=== PATIENT | female | born 1945 | race Caucasian/White ===

== ENCOUNTER → 2019-10-19 13:29 | Outpatient (CLI) | payer MEDICARE, SELFPAY ==
[2019-10-20 14:05] LABS: COVID19 Sendout Not Detected (Not Detect)
== END ==
PROVIDERS: PCP Family Medicine; Visit Provider Physician Assistant
DX: Z01.812 Encounter for preprocedural laboratory examination (principal)
CPT/HCPCS: 87635

== ENCOUNTER 2019-10-22 06:04 | Inpatient (IN) | payer MEDICARE, SELFPAY ==
[2019-10-16 09:58] VITALS: BMI 46.0
[2019-10-22] VITALS (17 sets, daily range): BP systolic 105–148; BP diastolic 50–82; PULSE 70–90; RESP 11–18; TEMP 35.9–36.8; O2SAT 87–97; BMI 46.0
--- NOTE | 2019-10-22 | DI.RAD.S_ITS ---
PROCEDURE: XR KNEE LT 1TO2V INDICATIONS: LEFT TOTAL KNEE TECHNIQUE: 2 view(s) of the knee acquired. COMPARISON: None. FINDINGS: Bones: Patient is status post knee joint arthroplasty. Hardware components are in expected positions. Visualized bony structures are intact. Soft tissues: Overlying postoperative changes are noted. IMPRESSION: Total knee arthroplasty with prosthesis in anatomic alignment. Dictated by: Elly Santos M.D. on 10/22/2019 at 10:50 Approved by: Elly Santos M.D. on 10/22/2019 at 10:51
[2019-10-22] MEDS: LACTATED RINGERS 1,000 ML 42 ML IV ×2 (07:12→09:31)
[2019-10-22] MEDS: ACETAMINOPHEN 325 MG TABLET 975 MG PO (07:14)
--- NOTE | 2019-10-22 07:34 | PM.PREOP ---
Pre-operative Note COVID-19 COVID-19 status: Negative Result date/Date tested (Pos, Neg/Pending): 10/20/19 Interval Note History & Physical reviewed/Exam performed by Physician: Yes Changes to H&P: No
--- NOTE | 2019-10-22 07:35 | P.OP_ITS ---
Operative Date/Time/Diagnoses Date of procedure: 10/22/19 Time of procedure: 09:34 Pre-op diagnosis: Left knee osteoarthritis with valgus alignment Post-op diagnosis: same Procedure & Clinicians Procedure: Left total knee arthroplasty Same procedure as scheduled: Yes Indications: The patient presents today for total knee arthroplasty after f ailure of conservative treatment. The nature of the procedure including the risks and benefits, alternatives, postoperative course and expected outcome were discussed and all questions answered. Consent was obtained. Operative site confirmed and marked. Surgeon: Sam Baum Oil Refinery Operator: Moises Chung Anesthesia Type: General and Local Operative Notes Findings: The cases made difficult by the size of the patient's leg and posterior soft tissues. The knee was tight laterally as expected from her preoperative deformity. A lateral capsular release was performed using a 15 blade for the pie crust technique. This nicely balance the knee in flexion and extension. A +1 femoral cut was made as there was a slight flexion contracture. The tibial cut was made at 9 mm from the less affected medial side. The knee easily went into full extension and flexed up to at least 120? intraoperatively. Flexion was limited by soft tissue impingement. Closure Type: primary Specimen(s): none sent Prosthetic devices, grafts, tissues, transplants, or devices: [employer] BCS: 5 femoral component, 4 tibial component, 9 mm BCS polyethylene tray and 32 x 9 mm round patella Applied: implant(s) Estimated Blood Loss (mL): 5 Blood products transfused: none Tourniquet time (min): 60 Procedure in detail: The patient was taken to the operative suite and placed under anesthesia. The patient was given prophylactic antibiotics prior to surgery. The lateral knee was prepped and the joint injected with 20 mL of 1% Lidocaine with epinephrine. The knee was then prepped and draped in usual sterile fashion. The leg was exsanguinated with an Esmarch dressing and the tourniquet raised to 300 torr. A 15 cm anterior incision was made. Next a medial trivector arthrotomy was made. The extensor mechanism was marked to ensure accurate repair. Initial exposing dissection was carried out medially and laterally. The knee was then flexed and the intramedullary femoral guide evie placed. The distal femoral cut was made in [6]? of valgus at the +1 position. The femoral size was measured and the appropriate cutting block was then placed and the anterior, posterior and chamfer cuts made. The intramedullary tibial alignment evie was then placed. The guide was set to remove approximately 9 mm from the less affected medial side. The proximal tibial cut was then made with an oscillating saw. All meniscus and bony debris was then removed. Posterior femoral osteophytes removed with a curved osteotome. Flexion extension gaps were checked. The knee was tight laterally as expected. The lateral capsule was released until the knee was balanced using a pie crust technique with a 15 blade. The soft tissues were then injected with a combination of 20 mL of half percent Marcaine with epinephrine and 20 mL of Exparel. The trial components were then placed. The knee was then extended and the patellar thickness was measured and a cut made removing approximately [9] mm of bone. The patella was then sized and drilled. Some excess lateral bone was excised and the patellofemoral ligament released. The knee easily went into full extension. It bent to at least 120?. The band was limited by soft tissue impingement posteriorly. There was [excellent] medial-lateral balance throughout motion. Patellar tracking was [excellent]. The trial components were removed and the knee was cleansed with Pulsavac irrigation and dried. The final components were cemented with high viscosity vacuum mixed bone cement with antibiotics. The joint was filled with a dilute Betadine solution. The knee was held in extension and the patellar clamped until the cement was adequately cured. The knee was then irrigated. The extensor mechanism was closed with 5 interrupted #1 Vicryl sutures and a running Quill suture at approximately 90 degrees of flexion. The joint was then injected with a combination of 1 g of tranexamic acid and 20 mL of quarter percent Marcaine with epinephrine. The subcutaneous tissue was closed with 2 0 Vicryl. The skin was closed with a Zip-Close device. An calderon dressing and Ricardo wrap were then applied. The patient tolerated the procedure well and was returned to recovery room in good condition. Complications: none Post-operative Condition: stable Disposition: PACU Plan for aftercare: [facility] Protocol. Due to her history of previous DVT she will neutrally be on Lovenox and then transition back to her normal Coumadin for prophylaxis.
--- NOTE | 2019-10-22 07:35 | SUR.PREOP ---
Patient noted to have amoxicillin allergy listed. According to patient, she had hives from amoxicillin about two years ago but went to an compliance engineer who tested her extensively for the amoxicillin allergy and found her to not be allergic. Notified pharmacy.
[2019-10-22] MEDS: CEFAZOLIN 2 GM/100 ML FROZ.PIGGY IV (08:15)
[2019-10-22] MEDS: TRANEXAMIC ACID 1,000 MG VIAL 1000 MG IV (08:25)
--- NOTE | 2019-10-22 08:35 | SUR.OPER ---
Supine on padded OR bed. Pillow under head, arms secured on padded armboards <90 degree abduction. Safety belt across torso. Non-operative leg secured with tape over blanket over lower leg. Operative leg secured in DeMayo/Alejandro positioner. Foam padded brace at thigh of operative leg.
[2019-10-22] MEDS: BUPIVACAINE 0.25% W/ EPI (PF) 40 ML, BUPIVACAINE LIPOSOME 266 MG, SODIUM CHLORIDE 0.9% ... INJ (08:45)
[2019-10-22] MEDS: BUPIVACAINE 0.25% W/ EPI (PF) 20 ML, TRANEXAMIC ACID 1,000 MG, SODIUM CHLORIDE 0.9% 10 ML INJ (08:47)
[2019-10-22] MEDS: LIDOCAINE 1% W/EPI 20 ML INJ (08:48)
--- NOTE | 2019-10-22 10:20 | SUR.PHASEI ---
10:20 called to give report to inpatient nurse; nurse unavailable.
--- NOTE | 2019-10-22 10:34 | SUR.PHASEI ---
Attempted to give report again to receiving nurse and nurse unavailable. Offered to give bedside report and nurse refused, saying that she would have to take report over the phone.
[2019-10-22] MEDS: OXYCODONE IR 10 MG TABLET PO ×2 (12:13→16:49)
[2019-10-22] MEDS: LACTATED RINGERS 1,000 ML 100 ML IV (12:16)
[2019-10-22] MEDS: HYDROMORPHONE 0.5 MG INJ 0.2 MG IV (13:10)
[2019-10-22] MEDS: IBUPROFEN 400 MG TABLET PO ×3 (13:54→20:58)
[2019-10-22] MEDS: ACETAMINOPHEN 325 MG TABLET 650 MG PO ×2 (13:54→20:57)
--- NOTE | 2019-10-22 16:47 | PT.IIE ---
Current Diagnoses Unilateral primary osteoarthritis, left knee (10/22/19) Surgery Performed Operation Date: 10/22/19 07:45 Actual Procedures p Total Knee Arthroplasty(Left) - Sam Baum MD Surgical History (Last Updated 10/16/19 @ 15:02 by Johanna Hankins RN) H/O exploratory laparotomy (Acute 08/31/10) History of gastric stapling (Acute 1981) History of left-sided carotid endarterectomy (Acute 2011) History of lumbar surgery (Acute 2014) Hx of appendectomy (Acute) Hx of bilateral cataract extraction (Acute) Hx of tubal ligation (Acute) Status post excision of lipoma (Acute 2009) Medical History (Last Updated 10/16/19 @ 14:54 by Johanna Hankins RN) Carotid stenosis (Acute) Complication of gastric stapling (Acute 2010) DVT (deep venous thrombosis) (Acute) Easy bruisability (Acute) Factor V Leiden (Acute) HLD (hyperlipidemia) (Acute) HTN (hypertension) (Acute) intermediate current use of anticoagulant (Acute) REGINE (obstructive sleep apnea) (Acute) Phlebitis and thrombophlebitis of femoral vein (deep) (superficial) (Acute) PVD (peripheral vascular disease) (Acute) CYNTHIA (stress urinary incontinence, female) (Acute) Physical Therapy Inpatient Evaluation/Re-Eval M1 PT/OT-IP Prior Functional Status Start: 10/22/19 12:05 Freq: NEEDED Status: Active Protocol: Document 10/22/19 16:16 AW (Rec: 10/22/19 16:46 AW [id number]) Medical Review Prior Functional Status Medical History Reviewed Yes Communication WNL Mobility and Gait Pt has been independently ambulatory for short community distances up to 100 feet. She can complete her grocery shopping walking with a shopping cart Activities of Daily Living and IADL's Pt states she has been slow but independent with all ADL's except for donning shoes and socks which her helps her with. Social History Household Members spouse Living Arrangements House Number of Floors (Floors) One Floor Number of Stairs To Enter/Railing? 5 ANN-MARIE through the garage with narrow bilateral rails which pt can reach at the same time. Home Environment Standard Height Toilet,Walk in Shower Home Equipment Four Wheel Walker,Straight Cane,Hand Held Shower,Grab Bars In Shower Additional Social History Comment Pt lives with her spouse, Arcadio, who she describes as a worrier who does not enjoy seeing her in pain and may be limited in his ability to provide assist at home. M2 PT-IP Current Condition Start: 10/22/19 12:05 Freq: NEEDED Status: Active Protocol: Document 10/22/19 16:16 AW (Rec: 10/22/19 16:46 AW [id number]) Physical Therapy Current Condition Current Condition Evaluation Date 10/22/19 Treatment Diagnosis L TKA; difficulty in walking Onset Date 10/22/19 Weight Bearing Status Weight Bearing Status Weight Bear as Tolerated M3 PT-IP Subjective Start: 10/22/19 12:05 Freq: NEEDED Status: Active Protocol: Document 10/22/19 16:16 AW (Rec: 10/22/19 16:46 AW [id number]) Subjective Physical Therapy Visit Type Type Initial Evaluation Visit Start Time 15:37 Visit Stop Time 16:04 Total Visit Minutes 27 Physical Therapy Visit Comments Patient Comments Pt is willing to participate with PT Therapy Pain Assessment Pain When Pain Assessed During Mobility Pain Present Pain Present Pain Reported Location Left Knee Intensity 8 Scale Used 4/10 at rest; 8/10 with mobility Pain Management Techniques Apply Cold,Elevation,Timing of Activity with Medications M4 PT-IP Mobility and Gait Start: 10/22/19 12:05 Freq: NEEDED Status: Active Protocol: Document 10/22/19 16:16 AW (Rec: 10/22/19 16:46 AW [id number]) PT-Transfer Assessment Sit to and From Stand Sit to and from Stand Moderate Assistance,1 Person Assistance,Use of Upper Extremities Equipment Transfer Assistive Device Gait Belt,Front Wheeled Walker Transfers Transfer Destination Chair Transfer Technique Forward/Backward Scoot Transfer Ability Level of Assist Moderate Assistance,1 Person Assistance,Use of Upper Extremities Comments Mobility Comments Pt was sitting up in the chair when PT arrived. Earlier, she was assisted to BSC and to chair by RECORD SYSTEMS ANALYST. Pt was able to stand from the chair mod A x 1 with FWW. She required max cues for quad activation as she stood and shifted weight side to side. Pt attempted ambulation with FWW, requiring mod A x 1 for weight shifting and advancement of the L LE. Pt walked ~3 feet forward before needing to sit secondary to weakness. She was able to walk backward 2[address] PT moved the chair so that the pt could safely sit, requiring mod A x 1 for controlled descent to the chair. Pt refused further mobility, stating she was too fatigued and in too much pain. Pt was positioned in the chair with call light and all needs within reach, fresh ice packs applied. Gait Assessment Gait Gait Assistance Required: Moderate Assistance,1 Person Assist Distance (Feet) 5 Able to Maintain Weight Bearing Status Yes During Gait Assistive Devices Assistive Device Gait Belt,Front Wheeled Walker Gait Deviations General Gait Pattern Antalgic,Decreased Stride Length,Decreased Feet Clearance,Flexed Trunk,Lateral Trunk Lean,Step-to Gait,Wide Based Gait Factors Limiting Gait Function Factors Limiting Gait Function Decreased Activity Tolerance, Decreased Strength,Difficulty Following Directions,Limited Range of Motion,Pain,Poor Balance,Poor Safety Awareness Comments Gait Comments Pt had poor control of the L LE this session, requiring mod assist for weight shifting and limb advancement, max cues for quad activation. She was limited primarily by pain. Stair Climbing Assessment Comments Stair Climbing Comments Not assessed. PT-Balance Assessment Sitting Balance and Reactions Static Sitting Balance Ability Good Dynamic Sitting Balance Ability Good Standing Balance and Reactions Static Standing Balance Ability Fair Dynamic Standing Balance Ability Poor Device Used FWW M5 PT-IP Objective Assessments Start: 10/22/19 12:05 Freq: NEEDED Status: Active Protocol: Document 10/22/19 16:16 AW (Rec: 10/22/19 16:46 [id number]) Orientation Orientation/Cognition Level of Alertness Alert Orientation Name,Day of Week,Place, Situation Language Function Ability No Deficits Noted Safety Awareness Decreased Safety Awareness Memory Description No Deficits Noted Gross Range of Motion Lower Extremity ROM Assessment Left Impaired Strength Lower Extremity Strength Assessment Bilaterally Impaired Comments Strength Comments RLE grossly 4-/5 Coordination Assessment Gross Coordination Gross Coordination WNL Sensation Assessment Sensation Gross Sensation Left LE Impaired Comments Sensation Comments Pt reports numbness in posterior aspect of the left knee Muscle Tone Muscle Tone WNL Yes M6 PT-IP Treatment Start: 10/22/19 12:05 Freq: NEEDED Status: Active Protocol: Document 10/22/19 16:16 AW (Rec: 10/22/19 16:46 [id number]) Physical Therapy Treatment Exercises Exercises Ankle Pumps,Quad Sets,Heel Slides,Passive Knee Extension Hang Education Education Provided Precautions,Weight Bearing Status,Post-Op Packet,Safety Other Treatments Other Treatment Performed Provided education on role of PT, plan of care, weightbearing status, and safe use of FWW. M7 PT-IP Assessment and Plan Start: 10/22/19 12:05 Freq: NEEDED Status: Active Protocol: Document 10/22/19 16:16 AW (Rec: 10/22/19 16:46 AW [id number]) PT Summary Assessment and Plan Potential Rehabilitation Potential Fair Status of Condition at Evaluation Evolving Summary Impairments Pain,ROM,Strength,Balance, Sensation,Bed Mobility, Transfers,Gait,Activity Tolerance Assessment Summary Brandi is a 74 yo woman seen for PT evaluation on POD0 following L TKA. At baseline, she is independent with short community distance ambulation. On evaluation, she required mod assist for all mobility. Pain and obesity are limiting her independence with mobility at this time. She does not appear to have a complete discharge plan. She has not yet scheduled outpatient PT. She states her may not be able to provide much assist at home and she can identify no other family or friend who could provide assist. She has no FWW. PT will continue to assess progress and refine discharge disposition. If pt were to discharge tomorrow, she may require SNF rehab or home health. Goals Bed Mobility Goal Standby Assistance Transfer Goal Standby Assistance,Front Wheeled Walker Gait Goal Standby Assistance,Front Wheel Walker Gait Distance 150 Other Goals - up/down 5 steps with B rails CGA Days to Meet Goals 8 Frequency of Treatment Frequency Of Treatment Twice a Day Treatment Plan Physical Therapy Treatment Plan Bed Mobility Training,Transfer Training,Gait Training, Therapeutic Exercise,Balance Retraining,Post Op Education, Discharge Planning,Hot or Cold Pack,Neuromuscular Re-ed Other Recommendations and Next Treatment assess bed mobility; transfers Focus ; gait training with FWW; stairs and caregiver training when able Recommendations To Nursing Amount of Assist Needed 1 Person Assist Discharge Recommendations PT Discharge Recommendations Home with Assistance,Home Health,SNF Rehab Other Discharge Recommendations SNF vs home with assist and HH depending on progress Equipment Needed for Home Before FWW Discharge Transportation Needs at Discharge Private Vehicle,Wheelchair/ Cabulance
[2019-10-22] MEDS: CEFAZOLIN VIAL 3 GM in SODIUM CHLORIDE 0.9% 100 ML 200 ML IV ×2 (16:49→23:51)
[2019-10-22] MEDS: WARFARIN 5 MG TABLET PO (16:55)
[2019-10-22] MEDS: DOCUSATE 100 MG CAPSULE PO (20:58)
[2019-10-23] MEDS: IBUPROFEN 400 MG TABLET PO ×3 (00:38→08:53)
[2019-10-23] MEDS: OXYCODONE IR 10 MG TABLET PO ×3 (01:17→10:27)
[2019-10-23 05:55] VITALS: BP 126/74; PULSE 65; RESP 16; TEMP 36.3
[2019-10-23 05:59] LABS: Hematocrit 37.4 % (36-46); Hemoglobin 11.9 g/dL (12.0-16.0)
--- NOTE | 2019-10-23 07:54 | PM.PNPO.1 ---
Subjective Subjective Date Patient Seen: 10/23/19 Time Patient Seen: 07:54 Interval history: Pain [id number]. Denies fever chills. No nausea vomiting. No shortness of breath or chest pain. is home to assist her however is limited in his ability. Patient has been up twice with physical therapy to the bathroom. Exam Vital Signs (past 8 hours): - 10/23/19 05:55 Temperature 97.3 F L Pulse Rate 65 Respiratory Rate 16 Blood Pressure 126/74 Oxygen Delivery Method Nasal Cannula Oxygen Flow Rate 0 Narrative Exam Narrative: Pleasant 74-year-old female sitting comfortably in bedside chair in no apparent distress. Left knee dressing, calderon is clean, dry and intact. The wound VAC is functioning. Minimal swelling about the knee however there is moderate swelling about the calf and edema into the lower leg. Calf is mildly tender with negative Homans. Sensation grossly intact to light touch distal left lower extremity. Motor functions intact distal left lower extremity. Objective Labs Result Diagrams: 10/23/19 05:40 Labs: Laboratory Results - last 24 hr 10/23/19 05:40 Hgb 11.9 L Hct 37.4 Assessment & Plan Post-op Postoperative Procedures: Procedures Operation Date: 10/22/19 07:45 Actual Procedures Side Surgeon p Total Knee Arthroplasty Left Sam Baum MD Patient progressing as expected status post left total knee arthroplasty. Mobilize with physical therapy. Order ultrasound left lower extremity due to increased swelling and history of DVT. Likely discharge home in 1-2 days. Quality VTE Deep Vein Thrombosis/Pulmonary Embolism Present on Admission: No
[2019-10-23] MEDS: SIMVASTATIN 20 MG TABLET PO (08:53)
[2019-10-23] MEDS: ENOXAPARIN 40 MG/0.4 ML SYRINGE SUBCUT (08:53)
[2019-10-23] MEDS: OLMESARTAN 20 MG TABLET PO (08:53)
[2019-10-23] MEDS: SODIUM CHLORIDE 0.9% FLUSH 10 ML IV ×2 (08:53→20:37)
[2019-10-23] MEDS: ACETAMINOPHEN 325 MG TABLET 650 MG PO ×3 (08:53→20:44)
[2019-10-23] MEDS: DOCUSATE 100 MG CAPSULE PO ×2 (08:54→20:44)
[2019-10-23] MEDS: ONDANSETRON 4 MG ODT PO (08:55)
--- NOTE | 2019-10-23 08:55 | CM.DANOTE ---
Addendum entered by Apoorva Velez R.N. 10/23/19 11:51: Left message with Lester at [facility] that referral was sent. Addendum entered by Apoorva Velez R.N. 10/23/19 11:25: Spoke to ERNESTO Ayon, who is giving verbal to order some equipment for home use for patient, shower chair. Asked him about home health, as was discussed with patient this morning. He indicated that P.T. for home health would be appropriate, but nursing not needed, as they can evaluate pain. Will go ahead and send referral to [facility]. Original Note: DCP: Case received, EMR reviewed and met with patient. Introduced self and role. Was able to meet with patient in her room and obtain information regarding her baseline activity level prior to surgery, as well as living situation. DCP assessment completed with information currently available. Patient is a 74 year old female who admitted yesterday morning to the care of the orthopedic team. PCP: Dr. Mariscal. Payer: confirmed: Medicare/[employer]. Patient came to the hospital via private vehicle for a surgical procedure. She had left total knee arthroplasty. Patient has history of osteoarthritis of her knees. Met with patient in her room. She was sitting up in her chair. She worked with P.T. yesterday. She is alert and oriented, pleasant. She is independent prior to surgery, and resides in [place] with her spouse, Arcadio. She has voiced concerns about her helping her at home due to her pain. She stated that he is the primary caregiver for her. Discussed some options. Patient mentioned that after discussion this morning with orthopedics, that shelter would not be the best thing, with the COVID situation. Mentioned home health, that P.T. could come to her home for a couple of days a week, and can even include nursing for pain management, which she thought was a great idea. Discussed various agencies, and she has no preference of agencies. P: DCP to continue to follow. Will get face to face, and set up with home health. Will consult with P.T. today during team rounds on plan. [facility] is on the calendar for this week. Apoorva Velez RN/License Issuer.
[2019-10-23 09:00] VITALS: BP 126/66; PULSE 71; RESP 16; TEMP 36.3; O2SAT 97
--- NOTE | 2019-10-23 09:31 | PT.IPTN ---
Current Diagnoses Unilateral primary osteoarthritis, left knee (10/22/19) Surgery Performed Operation Date: 10/22/19 07:45 Actual Procedures p Total Knee Arthroplasty(Left) - Sam Baum MD Physical Therapy Treatment Note M2 PT-IP Current Condition Start: 10/22/19 12:05 Freq: NEEDED Status: Active Protocol: Document 10/22/19 16:16 AW (Rec: 10/22/19 16:46 AW [id number]) Physical Therapy Current Condition Current Condition Evaluation Date 10/22/19 Treatment Diagnosis L TKA; difficulty in walking Onset Date 10/22/19 Weight Bearing Status Weight Bearing Status Weight Bear as Tolerated M3 PT-IP Subjective Start: 10/22/19 12:05 Freq: NEEDED Status: Active Protocol: Document 10/23/19 09:14 KS (Rec: 10/23/19 10:41 KS [id number]) Subjective Physical Therapy Visit Type Type Treatment Note Visit Start Time 09:14 Visit Stop Time 09:31 Total Visit Minutes 17 Number of MOISTURE MACHINE TENDER Visits 1 Physical Therapy Visit Comments Patient Comments Pt is willing to participate with PT Therapy Pain Assessment Pain When Pain Assessed During Mobility Pain Present Pain Present Pain Reported Location Left Knee Intensity 7 Scale Used Numeric (0 - 10) Description Burning Pain Behaviors Facial Grimacing,Guarding Pain Management Techniques Apply Cold,Elevation M4 PT-IP Mobility and Gait Start: 10/22/19 12:05 Freq: NEEDED Status: Active Protocol: Document 10/23/19 09:14 KS (Rec: 10/23/19 10:41 KS [id number]) PT-Transfer Assessment Sit to and From Stand Sit to and from Stand Contact Guard Assistance, Minimal Assistance,1 Person Assistance,Use of Upper Extremities Equipment Transfer Assistive Device Gait Belt,Front Wheeled Walker Orthotic/Prosthetic Devices or Brace: No Transfers Transfer Destination Chair Transfer Technique Forward/Backward Scoot Transfer Ability Level of Assist Contact Guard Assistance, Minimal Assistance,1 Person Assistance Comments Mobility Comments Pt was in chair upon arrival from therapy, reporting 7/10 pain and slight nausea. Pt completed 1x10 bilateral ankle pumps, quad sets, glute sets, and seated knee ext/flex. Pt then CGA for scooting to edge of chair and sit<>stand Min A w/ FWW. Pt completed 1 min weight shifting follwed by 2 min marching in pace w/ slow pace and heavy reliance of BUE . Pt reported increased pain in L knee when weight bearing. Pt then requested seated rest break, 2 min. She then agreed to practive sit<>stand. Pt completed 2x sit<>stand w/ CGA and cues. Pt then reported increased fatigue. Pt left in chair w/ ice applied to knee and all needs in reach. Pt agrees to ambulation this afternoon. Gait Assessment Comments Gait Comments Refer to mobility for details. Only pre gait activties, will try ambulation this PM. Stair Climbing Assessment Comments Stair Climbing Comments Not assessed. PT-Balance Assessment Sitting Balance and Reactions Static Sitting Balance Ability Good Dynamic Sitting Balance Ability Good Standing Balance and Reactions Static Standing Balance Ability Fair Dynamic Standing Balance Ability Poor Device Used FWW M5 PT-IP Objective Assessments Start: 10/22/19 12:05 Freq: NEEDED Status: Active Protocol: Document 10/22/19 16:16 AW (Rec: 10/22/19 16:46 AW [id number]) Orientation Orientation/Cognition Level of Alertness Alert Orientation Name,Day of Week,Place, Situation Language Function Ability No Deficits Noted Safety Awareness Decreased Safety Awareness Memory Description No Deficits Noted Gross Range of Motion Lower Extremity ROM Assessment Left Impaired Strength Lower Extremity Strength Assessment Bilaterally Impaired Comments Strength Comments RLE grossly 4-/5 Coordination Assessment Gross Coordination Gross Coordination WNL Sensation Assessment Sensation Gross Sensation Left LE Impaired Comments Sensation Comments Pt reports numbness in posterior aspect of the left knee Muscle Tone Muscle Tone WNL Yes M6 PT-IP Treatment Start: 10/22/19 12:05 Freq: NEEDED Status: Active Protocol: Document 10/23/19 09:14 KS (Rec: 10/23/19 10:41 KS [email or web address]) Physical Therapy Treatment Exercises Exercises Ankle Pumps,Gluteal Sets,Quad Sets,Seated Knee Flexion/ Extension Education Education Provided Precautions,Weight Bearing Status,Post-Op Packet,Safety Other Treatments Other Treatment Performed Discussed equipment needed if pt returns home. M7 PT-IP Assessment and Plan Start: 10/22/19 12:05 Freq: NEEDED Status: Active Protocol: Document 10/23/19 09:14 KS (Rec: 10/23/19 10:41 KS [id number]) PT Summary Assessment and Plan Potential Rehabilitation Potential Fair Status of Condition at Evaluation Evolving Summary Impairments Pain,ROM,Strength,Balance, Sensation,Bed Mobility, Transfers,Gait,Activity Tolerance Assessment Summary Pt continues to be limited by pain and low tolerance for activity. Pt able to complete 1x10 bilateral nakle pumps, quad sets, glute sets, and knee ext/flex followed by 3x total sit<>stands w/ Min A on first sit<>stand and CGA on second and third sit<>stands. Pt also completed weight shifting and marching in place to initiate ambulation traning, but was unable to ambulate this AM d/t pain and fatigue. Discussed equipment pt will need if able to d/c home. D/c plan dependent on pts progress. Goals Bed Mobility Goal Standby Assistance Transfer Goal Standby Assistance,Front Wheeled Walker Gait Goal Standby Assistance,Front Wheel Walker Gait Distance 150 Other Goals - up/down 5 steps with B rails CGA Days to Meet Goals 8 Frequency of Treatment Frequency Of Treatment Twice a Day Treatment Plan Physical Therapy Treatment Plan Bed Mobility Training,Transfer Training,Gait Training, Therapeutic Exercise,Balance Retraining,Post Op Education, Discharge Planning,Hot or Cold Pack,Neuromuscular Re-ed Other Recommendations and Next Treatment assess bed mobility; transfers Focus ; gait training with FWW; stairs and caregiver training when able Discharge Recommendations PT Discharge Recommendations Home with Assistance,Home Health,SNF Rehab Other Discharge Recommendations SNF vs home with assist and HH depending on progress Equipment Needed for Home Before FWW Discharge Transportation Needs at Discharge Private Vehicle,Wheelchair/ Cabulance
--- NOTE | 2019-10-23 10:29 | DI.US.S_ITS ---
PROCEDURE: US PERIPH VENOUS LOW EXTREM LT INDICATIONS: HISTORY OF CLOT / STATUS POST LEFT KNEE SURGERY WITH INCREAS TECHNIQUE: Real-time imaging, as well as color and pulse Doppler interrogation, were performed of the lower extremity deep veins from the inguinal ligament to the popliteal fossa. COMPARISON: None. FINDINGS: The common femoral, femoral and popliteal veins are normally compressible, and free of intraluminal thrombus. Color and pulse Doppler demonstrate normal phasic intraluminal flow. There is normal augmentation response to distal compression maneuver. IMPRESSION: No deep venous thrombosis. Dictated by: Maribell Flores M.D. on 10/23/2019 at 11:44 Approved by: Maribell Flores M.D. on 10/23/2019 at 11:45
--- NOTE | 2019-10-23 12:28 | DIET.PN ---
Dietary Progress Note Assessment: 74y F admitted for L TKA referred to nutrition for morbid obesity (BMI 46.1) Pt reports being 310# in Apr 2019 and has lost 50# since then on Atkins diet. Pt plans to lose another 80#. Pt has strong plan to continue c current eating plan and is excited for knee to be fixed up so she can start walking. Pt plans to visit family in [place] for [place], has not told them about her weight loss and looks forward to suprising them with how she looks. Pts motivation for weight loss is self-care and feels she should have started a long time ago. 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 Pt feels major weight gain occurred r/t isolation and [place]. Usual Day: B: Hess shake L: [employer] salad D: fish or chicken c salad or green beans Sn: raw almonds and pecans, atkins bar, strawberries and blueberries Drinks: water only HT: 160cm WT: 117.9kg UBW: 310# BMI: 46.1
[2019-10-23] MEDS: HYDROMORPHONE 2 MG TABLET PO ×4 (13:43→23:34)
--- NOTE | 2019-10-23 14:26 | PC.NURSE ---
PATIENT 1P ASSIST W/ FWW. STATES OXYCODONE NOT WORKING FOR HER. TRIAL OF DILAUDID PO THIS AFTERNOON. GAVE SELF LOVENOX INJECTION THIS AM SUCCESSFULLY. HX OF DVT ON WARFARIN. HAS 3+ EDEMA TO LLE. U/S TODAY IS NEG FOR DVT. DRSG CDI W/ VERY SCANT SHADOW DRSG. ADINA FLASHING GREEN.
[2019-10-23 15:45] VITALS: BP 123/69; PULSE 67; RESP 17; TEMP 36.1; O2SAT 96
--- NOTE | 2019-10-23 15:58 | PT.IPTN ---
Current Diagnoses Unilateral primary osteoarthritis, left knee (10/22/19) Surgery Performed Operation Date: 10/22/19 07:45 Actual Procedures p Total Knee Arthroplasty(Left) - Sam Baum MD Physical Therapy Treatment Note M2 PT-IP Current Condition Start: 10/22/19 12:05 Freq: NEEDED Status: Active Protocol: Document 10/22/19 16:16 AW (Rec: 10/22/19 16:46 AW [id number]) Physical Therapy Current Condition Current Condition Evaluation Date 10/22/19 Treatment Diagnosis L TKA; difficulty in walking Onset Date 10/22/19 Weight Bearing Status Weight Bearing Status Weight Bear as Tolerated M3 PT-IP Subjective Start: 10/22/19 12:05 Freq: NEEDED Status: Active Protocol: Document 10/23/19 14:06 AB (Rec: 10/23/19 15:58 AB [id number]) Subjective Physical Therapy Visit Type Type Treatment Note Visit Start Time 14:06 Visit Stop Time 14:28 Total Visit Minutes 22 Number of WORK CAR OPERATOR Visits 0 Physical Therapy Visit Comments Patient Comments i have a lot of pain Therapy Pain Assessment Pain When Pain Assessed At Rest Pain Present Pain Present Pain Reported Location Left Knee Intensity 8 Scale Used Numeric (0 - 10) Pain Management Techniques Apply Cold,Distraction, Modification of Treatment, Timing of Activity with Medications M4 PT-IP Mobility and Gait Start: 10/22/19 12:05 Freq: NEEDED Status: Active Protocol: Document 10/23/19 14:06 AB (Rec: 10/23/19 15:58 AB [id number]) PT-Transfer Assessment Sit to and From Stand Sit to and from Stand Contact Guard Assistance Equipment Transfer Assistive Device Gait Belt,Front Wheeled Walker Orthotic/Prosthetic Devices or Brace: No Comments Mobility Comments pt was just up with nursing but agreed to do PT. ambulated in room using FWW CGA ~ 25 ft. completed one leg stance on LLE using FWW for support and able to hold for ~ 5 sec. pt refused to do stairs and stated that she has a lot of pain. informed pt regarding having her spouse come in for training. pt is hesistant. stated that spouse is not going to be able to assist her much. stated that her grand daughter from [place] may be coming this sunday to assist her but will not be able to come in for training. stated that a friend also may be able to help her at home but will not be able to come in for training. educated pt regarding safety and importance of caregiver training especially with stair climbing training. pt stated that she will call her spouse for training and hopefully he can come. pt also informed that she might have to go in from the garage where she only has one step to enter. Gait Assessment Gait Gait Assistance Required: Contact Guard Assist Distance (Feet) 25 Able to Maintain Weight Bearing Status Yes During Gait Assistive Devices Assistive Device Gait Belt,Front Wheeled Walker Orthotic/Prosthetic Devices or Brace: No Gait Deviations General Gait Pattern Antalgic,Decreased Stride Length,Decreased Feet Clearance,Step-to Gait Factors Limiting Gait Function Factors Limiting Gait Function Decreased Activity Tolerance, Decreased Strength,Limited Range of Motion,Pain,Poor Balance,Poor Safety Awareness M5 PT-IP Objective Assessments Start: 10/22/19 12:05 Freq: NEEDED Status: Active Protocol: Document 10/22/19 16:16 AW (Rec: 10/22/19 16:46 AW [id number]) Orientation Orientation/Cognition Level of Alertness Alert Orientation Name,Day of Week,Place, Situation Language Function Ability No Deficits Noted Safety Awareness Decreased Safety Awareness Memory Description No Deficits Noted Gross Range of Motion Lower Extremity ROM Assessment Left Impaired Strength Lower Extremity Strength Assessment Bilaterally Impaired Comments Strength Comments RLE grossly 4-/5 Coordination Assessment Gross Coordination Gross Coordination WNL Sensation Assessment Sensation Gross Sensation Left LE Impaired Comments Sensation Comments Pt reports numbness in posterior aspect of the left knee Muscle Tone Muscle Tone WNL Yes M6 PT-IP Treatment Start: 10/22/19 12:05 Freq: NEEDED Status: Active Protocol: Document 10/23/19 14:06 AB (Rec: 10/23/19 15:58 AB [id number]) Physical Therapy Treatment Exercises Exercises Heel Slides,Seated Knee Flexion/Extension Education Education Provided Safety M7 PT-IP Assessment and Plan Start: 10/22/19 12:05 Freq: NEEDED Status: Active Protocol: Document 10/23/19 14:06 AB (Rec: 10/23/19 15:58 AB [id number]) PT Summary Assessment and Plan Potential Rehabilitation Potential Fair Summary Impairments Pain,ROM,Strength,Balance, Coordination,Sensation,Tone, Cognition,Bed Mobility, Transfers,Gait,Activity Tolerance Progress Towards Goals Slow Progress due to Pain Assessment Summary pt requiring CGA with ambulation but unable to do much due to c/o increase pain. refused stair climbing training due to c/o pain. pt is hesistant with spouse coming in for caregiver training. pt educated on safety and importance of training and pt stated that she will try to talk to her spouse to come in for training . d/c plan depending on progress and if spouse will be able to assist pt safely. will have to assess progress. Goals Bed Mobility Goal Standby Assistance Transfer Goal Standby Assistance,Front Wheeled Walker Gait Goal Standby Assistance,Front Wheel Walker Gait Distance 150 Other Goals - up/down 5 steps with B rails CGA Days to Meet Goals 8 Frequency of Treatment Frequency Of Treatment Twice a Day Treatment Plan Physical Therapy Treatment Plan Bed Mobility Training,Transfer Training,Gait Training, Therapeutic Exercise,Balance Retraining,Post Op Education, Discharge Planning,Hot or Cold Pack,Neuromuscular Re-ed Other Recommendations and Next Treatment assess bed mobility; transfers Focus ; gait training with FWW; stairs and caregiver training when able Recommendations To Nursing Amount of Assist Needed 1 Person Assist Discharge Recommendations PT Discharge Recommendations Home with Assistance,Home Health,SNF Rehab Other Discharge Recommendations SNF vs home with assist and HH depending on progress Equipment Needed for Home Before FWW Discharge Transportation Needs at Discharge Private Vehicle,Wheelchair/ Cabulance
[2019-10-23] MEDS: WARFARIN 5 MG TABLET PO (16:59)
[2019-10-23 19:30] VITALS: BP 111/71; PULSE 72; RESP 16; TEMP 36.1; O2SAT 96
[2019-10-23 23:47] VITALS: BP 139/68; PULSE 70; RESP 16; TEMP 36.1; O2SAT 94
--- NOTE | 2019-10-24 01:00 | PC.NURSE ---
After ambulating pt rated her pain 10/10, medicated pt w/dilaudid and she fell asleep. ADINA drain blinking green. call light at bedside. bed alarm on.
[2019-10-24] MEDS: HYDROMORPHONE 2 MG TABLET PO ×2 (02:53→05:56)
[2019-10-24 06:00] VITALS: BP 127/92; PULSE 80; RESP 16; TEMP 36.9; O2SAT 95
[2019-10-24] MEDS: ENOXAPARIN 40 MG/0.4 ML SYRINGE SUBCUT (08:40)
[2019-10-24] MEDS: ACETAMINOPHEN 325 MG TABLET 650 MG PO ×3 (08:42→20:22)
[2019-10-24] MEDS: DOCUSATE 100 MG CAPSULE PO ×2 (08:42→20:23)
[2019-10-24] MEDS: OLMESARTAN 20 MG TABLET PO (08:45)
[2019-10-24] MEDS: SIMVASTATIN 20 MG TABLET PO (08:45)
[2019-10-24] MEDS: SODIUM CHLORIDE 0.9% FLUSH 10 ML IV (08:45)
--- NOTE | 2019-10-24 08:52 | PM.PNPO.1 ---
Subjective Subjective Date Patient Seen: 10/24/19 Time Patient Seen: 08:52 Interval history: The patient is still having quite a bit of pain in her knee and difficulty mobilizing. She is feeling well otherwise. Exam Vital Signs (past 8 hours): - 10/24/19 06:00 Temperature 98.4 F Pulse Rate 80 Respiratory Rate 16 Blood Pressure 127/92 H Pulse Oximetry 95 Oxygen Delivery Method Nasal Cannula Oxygen Flow Rate 0 Narrative Exam Narrative: The dressing is intact. There is expected swelling. The leg is neurovascularly intact. Objective Labs Result Diagrams: 10/23/19 05:40 Assessment & Plan Post-op Postoperative Procedures: Procedures Operation Date: 10/22/19 07:45 Actual Procedures Side Surgeon p Total Knee Arthroplasty Left Sam Baum MD Postoperative status narrative: The patient is progressing more slowly than expected after surgery. This may be somewhat due to her BMI. She will continue to progress with physical therapy today. Plan discharge home tomorrow. Time Spent With Patient Time with patient: less than 15 minutes Quality VTE Deep Vein Thrombosis/Pulmonary Embolism Present on Admission: No
[2019-10-24 09:00] VITALS: BP 121/61; PULSE 85; RESP 18; TEMP 36.3; O2SAT 98
--- NOTE | 2019-10-24 10:42 | CM.DPC ---
Addendum entered by Jackie Marks LPN 10/24/19 11:52: No H&P is found either in EMR/SCAN or hard copy red folder. Have spoken now with O office nurse. She states there are only clinic notes available but she will fax these now to the office fax. Will await same. [facility] has accepted pt pending the neg Covid test. Will need and H&P and will send on to her what is received from the clinic. Addendum entered by Jackie Marks LPN 10/24/19 10:55: Spoke with MARICHUY Cee, caring for pt this shift. He is updated re snf plan and covid test need and agrees to follow up with Dr. Baum for order and then will start the testing process. Original Note: DCP: continued: case received, EMR reviewed. Discussed in Team Rounds and then again with PT staff who have been working with pt. Recommendation is now snf setting. Met then with pt and introduced self and role. Pt states she very much agrees she needs the snf rehab. She notes, I did not realize how much pain I would be in and how limited I would be. I am just not prepared to be at home at this time and would be scared to try that.. Noted: INPT admission status order: confirmed: by [facility] RN team: 10/21. Payer: Medicare and AARP. SNF choice list: discussed. (pt resides in [place]). Decision: [facility]: Referral: to . Has beds, is reviewing. COVID-19: will check on status of last test and follow up. PASRR: needed/ P: SVCR: ? Tuesday 10/24 or >.
--- NOTE | 2019-10-24 11:24 | PT.IPTN ---
Current Diagnoses Unilateral primary osteoarthritis, left knee (10/22/19) Surgery Performed Operation Date: 10/22/19 07:45 Actual Procedures p Total Knee Arthroplasty(Left) - Sam Baum MD Physical Therapy Treatment Note M2 PT-IP Current Condition Start: 10/22/19 12:05 Freq: NEEDED Status: Active Protocol: Document 10/22/19 16:16 AW (Rec: 10/22/19 16:46 AW [id number]) Physical Therapy Current Condition Current Condition Evaluation Date 10/22/19 Treatment Diagnosis L TKA; difficulty in walking Onset Date 10/22/19 Weight Bearing Status Weight Bearing Status Weight Bear as Tolerated M3 PT-IP Subjective Start: 10/22/19 12:05 Freq: NEEDED Status: Active Protocol: Document 10/24/19 10:59 KS (Rec: 10/24/19 12:23 KS [id number]) Subjective Physical Therapy Visit Type Type Treatment Note Visit Start Time 10:59 Visit Stop Time 11:24 Total Visit Minutes 25 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 Therapy Pain Assessment Pain When Pain Assessed At Rest Pain Present Pain Present Pain Reported Location Left Knee Scale Used no number given Pain Behaviors Guarding Pain Management Techniques Elevation,Re-positioning, Timing of Activity with Medications M4 PT-IP Mobility and Gait Start: 10/22/19 12:05 Freq: NEEDED Status: Active Protocol: Document 10/24/19 10:59 KS (Rec: 10/24/19 12:23 KS [id number]) PT-Transfer Assessment Sit to and From Stand Sit to and from Stand Minimal Assistance,1 Person Assistance,Use of Upper Extremities Equipment Transfer Assistive Device Gait Belt,Front Wheeled Walker Orthotic/Prosthetic Devices or Brace: No Transfers Transfer Destination Chair Transfer Technique Forward/Backward Scoot Transfer Ability Level of Assist Contact Guard Assistance, Minimal Assistance,1 Person Assistance,Use of Upper Extremities Comments Mobility Comments Pt in chair upon arrival from therapy. Reviewed LE exercises for strengthening and ROM. Pt then CGA for scooting to EOC, Min A for sit<>stand w/ FWW. Pt then ambulated ~15 ft w/ FWW and CGA. Pt ambulated very slowly w/ short step length and decreased foot clearance d /t pain. Pt then requested to use BSC and CGA for stand<>sit on commode. Pt required assist for pericare. Pt then ambulated additional ~10 ft back to chair. CGA for stand<> sit in chair and scooting back into chair. Pt left in chair w/ BLE elevated. Gait Assessment Gait Gait Assistance Required: Contact Guard Assist Distance (Feet) 25 Able to Maintain Weight Bearing Status Yes During Gait Assistive Devices Assistive Device Gait Belt,Front Wheeled Walker Orthotic/Prosthetic Devices or Brace: No Gait Deviations General Gait Pattern Antalgic,Decreased Stride Length,Decreased Feet Clearance,Step-to Gait Factors Limiting Gait Function Factors Limiting Gait Function Decreased Activity Tolerance, Decreased Strength,Limited Range of Motion,Pain,Poor Balance,Poor Safety Awareness Comments Gait Comments Please refer to mobility section for details. Stair Climbing Assessment Comments Stair Climbing Comments Not assessed. PT-Balance Assessment Sitting Balance and Reactions Static Sitting Balance Ability Good Dynamic Sitting Balance Ability Good Standing Balance and Reactions Static Standing Balance Ability Fair Dynamic Standing Balance Ability Fair Device Used FWW M5 PT-IP Objective Assessments Start: 10/22/19 12:05 Freq: NEEDED Status: Active Protocol: Document 10/22/19 16:16 AW (Rec: 10/22/19 16:46 AW [id number]) Orientation Orientation/Cognition Level of Alertness Alert Orientation Name,Day of Week,Place, Situation Language Function Ability No Deficits Noted Safety Awareness Decreased Safety Awareness Memory Description No Deficits Noted Gross Range of Motion Lower Extremity ROM Assessment Left Impaired Strength Lower Extremity Strength Assessment Bilaterally Impaired Comments Strength Comments RLE grossly 4-/5 Coordination Assessment Gross Coordination Gross Coordination WNL Sensation Assessment Sensation Gross Sensation Left LE Impaired Comments Sensation Comments Pt reports numbness in posterior aspect of the left knee Muscle Tone Muscle Tone WNL Yes M6 PT-IP Treatment Start: 10/22/19 12:05 Freq: NEEDED Status: Active Protocol: Document 10/24/19 10:59 KS (Rec: 10/24/19 12:23 KS [id number]) Physical Therapy Treatment Exercises Exercises Ankle Pumps,Quad Sets,Seated Knee Flexion/Extension Education Education Provided Safety M7 PT-IP Assessment and Plan Start: 10/22/19 12:05 Freq: NEEDED Status: Active Protocol: Document 10/24/19 10:59 KS (Rec: 10/24/19 12:23 KS [id number]) PT Summary Assessment and Plan Potential Rehabilitation Potential Fair Summary Impairments Pain,ROM,Strength,Balance, Coordination,Sensation,Tone, Cognition,Bed Mobility, Transfers,Gait,Activity Tolerance Progress Towards Goals Slow Progress due to Pain,Slow Progress due to Activity Tolerance Assessment Summary Pt unable to tolerate further ambulation distance today. CGA for scooting, Min A for sit<> stand w/ FWW. Pt only able to tolerate ~25 ft ambulation w/ FWW and has decreased stride and foot clearance d/t pain and weakness. Pt will benefit from SNF to improve strength, functional mobility, and tolerance for ambulation. Goals Bed Mobility Goal Standby Assistance Transfer Goal Standby Assistance,Front Wheeled Walker Gait Goal Standby Assistance,Front Wheel Walker Gait Distance 150 Other Goals - up/down 5 steps with B rails CGA Days to Meet Goals 8 Frequency of Treatment Frequency Of Treatment Twice a Day Treatment Plan Physical Therapy Treatment Plan Bed Mobility Training,Transfer Training,Gait Training, Therapeutic Exercise,Balance Retraining,Post Op Education, Discharge Planning,Hot or Cold Pack,Neuromuscular Re-ed Other Recommendations and Next Treatment assess bed mobility; transfers Focus ; gait training with FWW; stairs and caregiver training when able Recommendations To Nursing Amount of Assist Needed 1 Person Assist Discharge Recommendations PT Discharge Recommendations Home with Assistance,Home Health,SNF Rehab Other Discharge Recommendations SNF vs home with assist and HH depending on progress Equipment Needed for Home Before FWW Discharge Transportation Needs at Discharge Private Vehicle,Wheelchair/ Cabulance
[2019-10-24 11:30] VITALS: BP 119/56; PULSE 84; RESP 18; TEMP 36.6; O2SAT 94
--- NOTE | 2019-10-24 11:37 | PC.NURSE ---
Addendum entered by Coleman Kapadia R.N. 10/24/19 14:56: Pt continues to progress. Gets up when encouraged and follows through with requests. Pt feels she is doing better than the start of the day. Original Note: Pt wakes to name voices appropriate concerns and questions. Discussed plan for the day. Pt asked for bed hernandez but encouraged to get up to bedside commode instead. Pt nazario well with two person assist. and has been up in chair for some time now. Nazario well.
--- NOTE | 2019-10-24 13:29 | PT.IPTN ---
Current Diagnoses Unilateral primary osteoarthritis, left knee (10/22/19) Surgery Performed Operation Date: 10/22/19 07:45 Actual Procedures p Total Knee Arthroplasty(Left) - Sam Baum MD Physical Therapy Treatment Note M2 PT-IP Current Condition Start: 10/22/19 12:05 Freq: NEEDED Status: Active Protocol: Document 10/22/19 16:16 AW (Rec: 10/22/19 16:46 AW [id number]) Physical Therapy Current Condition Current Condition Evaluation Date 10/22/19 Treatment Diagnosis L TKA; difficulty in walking Onset Date 10/22/19 Weight Bearing Status Weight Bearing Status Weight Bear as Tolerated M3 PT-IP Subjective Start: 10/22/19 12:05 Freq: NEEDED Status: Active Protocol: Document 10/24/19 13:21 KS (Rec: 10/24/19 13:58 KS [id number]) Subjective Physical Therapy Visit Type Type Treatment Note Visit Start Time 13:21 Visit Stop Time 13:29 Total Visit Minutes 8 Number of BIOINFORMATICS TEAM MEMBER Visits 2 Physical Therapy Visit Comments Patient Comments Pt very drowsy and not agreeable to getting out of bed, but agreeable to review of LE strengthening exercises. Therapy Pain Assessment Pain When Pain Assessed At Rest Pain Present Pain Present Pain Reported Location Left Knee Scale Used no number given Pain Behaviors Guarding Pain Management Techniques Elevation,Re-positioning M4 PT-IP Mobility and Gait Start: 10/22/19 12:05 Freq: NEEDED Status: Active Protocol: Document 10/24/19 13:21 KS (Rec: 10/24/19 13:58 KS [id number]) PT-Transfer Assessment Comments Mobility Comments Pt reported that she is very drowsy and just got back into bed to take a nap. She is willing to get up w/ nursing staff later this evening, but currently only agreeable to review of LE strengthening exercises. Reviewed ankle pumps, quad sets, and heel slides w/ pt which she tolerated well but has increased pain and limited ROM. Encouraged and educated pt on importance of movement and ambulation to improve strength and ROM. Gait Assessment Comments Gait Comments Did not assess d/t pts high fatigue and pain. Stair Climbing Assessment Comments Stair Climbing Comments Not assessed. M5 PT-IP Objective Assessments Start: 10/22/19 12:05 Freq: NEEDED Status: Active Protocol: Document 10/22/19 16:16 AW (Rec: 10/22/19 16:46 AW [id number]) Orientation Orientation/Cognition Level of Alertness Alert Orientation Name,Day of Week,Place, Situation Language Function Ability No Deficits Noted Safety Awareness Decreased Safety Awareness Memory Description No Deficits Noted Gross Range of Motion Lower Extremity ROM Assessment Left Impaired Strength Lower Extremity Strength Assessment Bilaterally Impaired Comments Strength Comments RLE grossly 4-/5 Coordination Assessment Gross Coordination Gross Coordination WNL Sensation Assessment Sensation Gross Sensation Left LE Impaired Comments Sensation Comments Pt reports numbness in posterior aspect of the left knee Muscle Tone Muscle Tone WNL Yes M6 PT-IP Treatment Start: 10/22/19 12:05 Freq: NEEDED Status: Active Protocol: Document 10/24/19 13:21 KS (Rec: 10/24/19 13:58 KS [id number]) Physical Therapy Treatment Exercises Exercises Ankle Pumps,Quad Sets,Heel Slides Education Education Provided Post-Op Packet,Safety Other Treatments Other Treatment Performed Emphasized importance of exercises and mobility. Provided pt w/ written exercises to complete while in bed and chair. M7 PT-IP Assessment and Plan Start: 10/22/19 12:05 Freq: NEEDED Status: Active Protocol: Document 10/24/19 13:21 KS (Rec: 10/24/19 13:58 VT [id number]) PT Summary Assessment and Plan Potential Rehabilitation Potential Fair Summary Impairments Pain,ROM,Strength,Balance, Coordination,Sensation,Tone, Cognition,Bed Mobility, Transfers,Gait,Activity Tolerance Progress Towards Goals Slow Progress due to Pain,Slow Progress due to Activity Tolerance Assessment Summary Pt reported high fatigue and pain this afternoon, stating she just wants to rest. Pt agreeable to and reviewed ankle pumps, quad sets, and heel slides which she tolerated well but is limited in by pain and swelling of L knee. Pt stated she will ambulate w/ nursing staff after she has taken a nap. Goals Bed Mobility Goal Standby Assistance Transfer Goal Standby Assistance,Front Wheeled Walker Gait Goal Standby Assistance,Front Wheel Walker Gait Distance 150 Other Goals - up/down 5 steps with B rails CGA Days to Meet Goals 8 Frequency of Treatment Frequency Of Treatment Twice a Day Treatment Plan Physical Therapy Treatment Plan Bed Mobility Training,Transfer Training,Gait Training, Therapeutic Exercise,Balance Retraining,Post Op Education, Discharge Planning,Hot or Cold Pack,Neuromuscular Re-ed Other Recommendations and Next Treatment assess bed mobility; transfers Focus ; gait training with FWW; stairs and caregiver training when able Recommendations To Nursing Amount of Assist Needed 1 Person Assist Discharge Recommendations PT Discharge Recommendations SNF Rehab Transportation Needs at Discharge Private Vehicle,Wheelchair/ Cabulance
[2019-10-24 15:55] VITALS: BP 145/66; PULSE 72; RESP 19; TEMP 35.9; O2SAT 97
[2019-10-24] MEDS: WARFARIN 5 MG TABLET PO (17:24)
[2019-10-24 18:31] LABS: COVID19 -Nasal RAPID Negative (Negative)
[2019-10-24 20:21] VITALS: BP 126/68; PULSE 85; RESP 18; TEMP 35.9; O2SAT 98
[2019-10-24] MEDS: OXYCODONE IR 10 MG TABLET PO (23:33)
[2019-10-24 23:46] VITALS: BP 130/56; PULSE 85; RESP 18; TEMP 36.6; O2SAT 96
[2019-10-25] MEDS: ZOLPIDEM 5 MG TABLET PO (00:49)
--- NOTE | 2019-10-25 05:54 | PC.NURSE ---
Pt doing well. Minimal pain. Trouble sleeping last night, ambien given. Walks pretty slowly, can move extremity but not lift it on her own.
[2019-10-25] MEDS: OXYCODONE IR 10 MG TABLET PO (06:56)
[2019-10-25 08:00] VITALS: BP 144/87; PULSE 96; RESP 16; TEMP 36.9; O2SAT 96
[2019-10-25] MEDS: SODIUM CHLORIDE 0.9% FLUSH 10 ML IV (08:47)
[2019-10-25] MEDS: ENOXAPARIN 40 MG/0.4 ML SYRINGE SUBCUT (08:49)
[2019-10-25] MEDS: ACETAMINOPHEN 325 MG TABLET 650 MG PO (08:49)
[2019-10-25] MEDS: polyethylene glycoL 3350 17 GM POWD.PACK PO (08:49)
[2019-10-25] MEDS: DOCUSATE 100 MG CAPSULE PO (08:49)
[2019-10-25] MEDS: SIMVASTATIN 20 MG TABLET PO (08:50)
[2019-10-25] MEDS: OLMESARTAN 20 MG TABLET PO (08:50)
--- NOTE | 2019-10-25 09:08 | PM.DS.1 ---
History of Present Illness History of Present Illness Date Patient Seen: 10/25/19 Time Patient Seen: 09:09 Chief complaint: Left Total Knee Arthroplasty *OPB* Narrative: The patient presents today for total knee arthroplasty after failure of conservative treatment. The nature of the procedure including the risks and benefits, alternatives, postoperative course and expected outcome were discussed and all questions answered. Consent was obtained. Operative site confirmed and marked. Discharge Providers Provider Date of admission: 10/22/19 06:04 Discharge Date: 10/25/19 Primary care physician: Haydee Mariscal Consults: 10/22/19 11:01 Consult to Discharge Planning Routine Comment: Consult to Physical Therapy Evaluate & Treat Comment: Physician Instructions: postop TKA protocol Consult to Respiratory Therapy Evaluate & Treat Comment: Physician Instructions: Evaluate and treat 10/22/19 14:27 Consult to Dietitian, Adult Routine Comment: Reason For Exam: obesity 10/23/19 10:32 Consult to Physical Therapy Evaluate & Treat Comment: Eval for shower chair for home use Physician Instructions: Evaluate and Treat Discharge provider: Maral Brantley PA-C Summary Hospital Course Discharge Diagnosis: s/p left total knee arthroplasty Diabetes Hypertension History of cancer colon, esophageal, stomach Celiac disease Hyperlipidemia Inflammatory bowel disease Morbid obesity History of DVT Hospital Course: Mihaela was admitted for a left total knee arthroplasty with Dr. Baum. She consented to procedure. She was slow to mobilize during her hospital course and had pain control issues. This was likely due to her BMI. There was concern on postop day 1 that she had a DVT and an ultrasound was performed, results were negative for DVT. She had difficulty sleeping while in the hospital and she was started on Ambien, her insomnia will need to be managed by PCP after surgery. She complains of back pain and restless legs. Her also fell yesterday and broke his hip and confusion. He is currently down in [place] for care. Due to this lack of family support and her slow mobility it was determined she is not safe at this time to go home. She will need to recover at [facility]. Her granddaughter is flying in from [place]. Per cardiologists notes patient will need to be on Lovenox postoperatively until Coumadin takes affect. Plan to stop Lovenox tomorrow and transition to aspirin. She will continue her normal warfarin dosing and will need her INR checked regularly. Throughout hospital stay she worked with physical therapy. She is eating and voiding without difficulty or assistance. Status at Discharge Cognitive/behavioral status at discharge: oriented Functional status at discharge: uses cane/walker Exam Vital Signs (past 8 hours): - 10/25/19 08:00 Temperature 98.4 F Pulse Rate 96 H Respiratory Rate 16 Blood Pressure 144/87 H Pulse Oximetry 96 Oxygen Delivery Method Room Air Oxygen Flow Rate 0 Narrative Exam Narrative: Patient is sitting at bedside chair no acute distress. She is alert oriented x3. Calves are soft, compressible, nontender bilaterally. Expected postoperative swelling of left leg. Marce dressing in place and functioning. Sensation intact light touch throughout bilateral lower extremities. She is able to actively dorsiflex and plantar flex. Dorsalis pedis pulses are symmetrical. No complaints this morning. Objective Labs Result Diagrams: 10/23/19 05:40 Labs: Laboratory Results - last 24 hr 10/24/19 17:30 COVID-19 PCR Negative Discharge Assessment & Plan Assessment and Plan Assessment: See discharge assessment and plan Discharge Plan Discharge Plan Patient Disposition: SNF Transfer to: [facility] Consult as needed: Dental, Hearing, Mental health, Podiatry and Vision Discharge orders & Medications Prescriptions: New oxycodone 5 mg tablet 5 mg PO Q4H PRN (Reason: pain) Qty: 60 RF: 0 acetaminophen 325 mg Tablet 650 mg PO TID Qty: 20 RF: 0 polyethylene glycol 3350 17 gram Powder In Packet 17 gm PO DAILY PRN (Reason: Constipation) Qty: 20 RF: 0 warfarin [Coumadin] 7.5 mg Tablet 7.5 mg PO Tu@1700 Qty: 20 RF: 0 docusate sodium [DOK] 100 mg Capsule 100 mg PO BID Qty: 20 RF: 0 enoxaparin [Lovenox] 40 mg/0.4 mL Syringe 40 mg SUBCUT DAILY 1 Days Qty: 1 RF: 0 zolpidem [Ambien] 5 mg tablet 5 mg PO BEDTIME PRN (Reason: insomnia) Qty: 10 RF: 0 Continued simvastatin 20 mg Tablet 20 mg PO DAILY RF: 0 olmesartan [Benicar] 20 mg Tablet 20 mg PO DAILY RF: 0 warfarin 5 mg Tablet 5 mg PO SEEINSTR Qty: 0 RF: 0 aspirin 81 mg Tablet,Delayed Release (Dr/Ec) 81 mg PO DAILY Qty: 0 RF: 0 Follow up/Referrals: Haydee Mariscal MD [Primary Care Provider] - Sam Baum MD [Physician] - 2 Weeks Discharge Health Status Multidrug resistant organism: No MDRO Diet/Activity/Treatments Diet: Regular Liquid consistency: Normal/Thin Food texture: Regular Activity: Weightbearing and activity as tolerated. Daily knee range of motion. Cold/Heat Therapy: May ice the knee as needed for 20 minutes at a time. Skin/Wound/Dressing Care Report to your healthcare provider any signs of infection, such as:: chills, fever, increased pain, unusual drainage and unusual redness Dressing: Leave dressing in place. Leave skin closure device in place until follow-up. Special Rehabilitation Services Reason for rehabilitation: Post-operative therapy Rehab type: Physical therapy and Occupational therapy Visit Report/Discharge Packet Instructions: DI for Knee Replacement Discharge Data Primary Care Provider: Haydee Mariscal Quality VTE Deep Vein Thrombosis/Pulmonary Embolism Present on Admission: No
--- NOTE | 2019-10-25 09:27 | CM.DPC ---
Addendum entered by Jackie Marks LPN 10/25/19 11:00: Karishma/[facility] has called now: confirms her personal cell can be used for this weekend as trouble with other numbers. [facility] van transport is now set for 1130. All are updated. Will follow prn until pt leaves. Addendum entered by Jackie Marks LPN 10/25/19 10:03: Attempted to contact [facility] again: have tried the facility main line with 3 different options. Have tried the administrators cell phone and have tried the admission cell phone. Am unable to get through to anyone. RN coordinator is updated. Will keep trying... Original Note: DCP: continued: Trey Mcdonough is here now and finalizing the d/c to [facility]hab orders. All is now faxed to [facility], including PASRR: completed today. Hard copies placed to snf packet. Have called [facility] admission phone x 3 this morning and thus far am only able to leave a vm. Am unsure who is working as the liaison for this weekend. Will be following. Pt has been updated and expresses her readiness to go to the snf setting today. MARICHUY Mosley is updated. [facility]/ van: pending time.
--- NOTE | 2019-10-25 11:10 | PT.IPTN ---
Current Diagnoses Unilateral primary osteoarthritis, left knee (10/22/19) Surgery Performed Operation Date: 10/22/19 07:45 Actual Procedures p Total Knee Arthroplasty(Left) - Sam Baum MD Physical Therapy Treatment Note M2 PT-IP Current Condition Start: 10/22/19 12:05 Freq: NEEDED Status: Discharge Protocol: Document 10/22/19 16:16 AW (Rec: 10/22/19 16:46 AW [id number]) Physical Therapy Current Condition Current Condition Evaluation Date 10/22/19 Treatment Diagnosis L TKA; difficulty in walking Onset Date 10/22/19 Weight Bearing Status Weight Bearing Status Weight Bear as Tolerated M3 PT-IP Subjective Start: 10/22/19 12:05 Freq: NEEDED Status: Discharge Protocol: Document 10/25/19 10:55 KS (Rec: 10/25/19 12:17 KS [id number]) Subjective Physical Therapy Visit Type Type Treatment Note Visit Start Time 10:55 Visit Stop Time 11:10 Total Visit Minutes 15 Number of CRUSHER PLANT OPERATOR Visits 3 Physical Therapy Visit Comments Patient Comments Pt agreeable to work w/ therapy. M4 PT-IP Mobility and Gait Start: 10/22/19 12:05 Freq: NEEDED Status: Discharge Protocol: Document 10/25/19 10:55 KS (Rec: 10/25/19 12:17 KS [id number]) PT-Bed Mobility Assessment Scooting Scooting to Edge of Bed Contact Guard Assistance PT-Transfer Assessment Sit to and From Stand Sit to and from Stand Minimal Assistance,1 Person Assistance,Use of Upper Extremities Equipment Transfer Assistive Device Gait Belt,Front Wheeled Walker Orthotic/Prosthetic Devices or Brace: No Transfers Transfer Destination Chair Transfer Technique pt ambulated w/ FWW Transfer Ability Level of Assist Contact Guard Assistance, Minimal Assistance,1 Person Assistance,Use of Upper Extremities Comments Mobility Comments Pt in chair upon arrival from therapy. Reviewed LE strengthening exercises which pt states she has been completing periodically. Pt also notes she ambulated w/ nursing last night. Pt CGA for scooting to EOC and Min A w/ cues for sit<>stand w/ FWW. Pt performed 1 min weight shifting and then ambulated ~ 30 ft around room w/ FWW and CGA. Pt ambulated slowly w/ decreased stride length and foot clearance d/t weakness and decreased ROM. Pt required 1x 30 second standing rest break and returned to chair. Min A and cues for slow descent. Pt left in chair w/ BLE elevated and all needs in reach. Gait Assessment Gait Gait Assistance Required: Contact Guard Assist,1 Person Assist Distance (Feet) 30 Able to Maintain Weight Bearing Status Yes During Gait Assistive Devices Assistive Device Gait Belt,Front Wheeled Walker Gait Deviations General Gait Pattern Antalgic,Decreased Stride Length,Decreased Feet Clearance,Step-to Gait Factors Limiting Gait Function Factors Limiting Gait Function Decreased Activity Tolerance, Decreased Strength,Limited Range of Motion,Pain,Poor Balance,Poor Safety Awareness Comments Gait Comments Please refer to mobility section for details. Stair Climbing Assessment Comments Stair Climbing Comments Not assessed. PT-Balance Assessment Sitting Balance and Reactions Static Sitting Balance Ability Good Dynamic Sitting Balance Ability Good Standing Balance and Reactions Static Standing Balance Ability Fair Dynamic Standing Balance Ability Fair Device Used FWW M5 PT-IP Objective Assessments Start: 10/22/19 12:05 Freq: NEEDED Status: Discharge Protocol: Document 10/22/19 16:16 AW (Rec: 10/22/19 16:46 AW [id number]) Orientation Orientation/Cognition Level of Alertness Alert Orientation Name,Day of Week,Place, Situation Language Function Ability No Deficits Noted Safety Awareness Decreased Safety Awareness Memory Description No Deficits Noted Gross Range of Motion Lower Extremity ROM Assessment Left Impaired Strength Lower Extremity Strength Assessment Bilaterally Impaired Comments Strength Comments RLE grossly 4-/5 Coordination Assessment Gross Coordination Gross Coordination WNL Sensation Assessment Sensation Gross Sensation Left LE Impaired Comments Sensation Comments Pt reports numbness in posterior aspect of the left knee Muscle Tone Muscle Tone WNL Yes M6 PT-IP Treatment Start: 10/22/19 12:05 Freq: NEEDED Status: Discharge Protocol: Document 10/25/19 10:55 KS (Rec: 10/25/19 12:17 MA [id number]) Physical Therapy Treatment Exercises Exercises Ankle Pumps,Quad Sets,Heel Slides Education Education Provided Post-Op Packet,Safety M7 PT-IP Assessment and Plan Start: 10/22/19 12:05 Freq: NEEDED Status: Discharge Protocol: Document 10/25/19 10:55 KS (Rec: 10/25/19 12:17 KS [id number]) PT Summary Assessment and Plan Potential Rehabilitation Potential Fair Summary Impairments Pain,ROM,Strength,Balance, Coordination,Sensation,Tone, Cognition,Bed Mobility, Transfers,Gait,Activity Tolerance Progress Towards Goals Slow Progress due to Pain,Slow Progress due to Activity Tolerance Assessment Summary Pt showing slight improvement w/ tolerance for ambulation, but still requires Min A for sit<>stand and cues for sequencing. Pt only tolerating 30 ft ambulation w/ FWW CGA and 1 rest break at this time before fatiguing. Pt continues to be limited by pain, decreased ROM, and low tolerance for activity and will require SNF at this time to improve deficits. Goals Bed Mobility Goal Standby Assistance Transfer Goal Standby Assistance,Front Wheeled Walker Gait Goal Standby Assistance,Front Wheel Walker Gait Distance 150 Other Goals - up/down 5 steps with B rails CGA Days to Meet Goals 8 Frequency of Treatment Frequency Of Treatment Twice a Day Treatment Plan Physical Therapy Treatment Plan Bed Mobility Training,Transfer Training,Gait Training, Therapeutic Exercise,Balance Retraining,Post Op Education, Discharge Planning,Hot or Cold Pack,Neuromuscular Re-ed Other Recommendations and Next Treatment assess bed mobility; transfers Focus ; gait training with FWW; stairs and caregiver training when able Recommendations To Nursing Amount of Assist Needed 1 Person Assist Discharge Recommendations PT Discharge Recommendations SNF Rehab Transportation Needs at Discharge Private Vehicle,Wheelchair/ Cabulance
--- NOTE | 2019-10-25 11:41 | PC.NURSE ---
Day shift: Pt left unit for [facility] at this time. Taken by transport person. She has all personal belongings. SNF packet is with transport person. Pt is looking forward to the next phase of her recovery. Dressing is CDI and ADINA is functioning well. Report given to PIERO RN.
--- NOTE | 2019-10-30 20:05 | P.HP_ITS ---
History of Present Illness History of Present Illness Date Patient Seen: 10/22/19 Time Patient Seen: 08:00 Chief complaint: Left Total Knee Arthroplasty *OPB* Narrative: Mihaela is a 74-year-old woman who presents today for a left total knee arthroplasty. She has had a long history of severe left knee pain that is significantly affecting her daily activities and quality of life. She has failed conservative treatment including activity modifications, exercises, anti- inflammatory medications and injections. 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) REGINE (obstructive sleep apnea) (Acute) Phlebitis and thrombophlebitis of femoral vein (deep) (superficial) (Acute) PVD (peripheral vascular disease) (Acute) CYNTHIA (stress urinary incontinence, female) (Acute) Surgical History (Updated 10/16/19 @ 15:02 by Johanna Hankins RN) H/O exploratory laparotomy (Acute 08/31/10) History of gastric stapling (Acute 1981) History of left-sided carotid endarterectomy (Acute 2011) History of lumbar surgery (Acute 2014) Hx of appendectomy (Acute) Hx of bilateral cataract extraction (Acute) Hx of tubal ligation (Acute) Status post excision of lipoma (Acute 2009) Family & Social History Social History: household members spouse Prior Living Arrangements House Safety & Behavioral: Feels Safe in Current Yes Environment Been Physically Hurt or No Threatened By a Person Suicidal Ideation Description None Suicide Plan Description No Plan Tobacco & Substance use: Smoking Status Never smoker alcohol intake current alcohol intake frequency holiday/special occasion Substance Use Type does not use Meds Home Medications and Allergies Home Medications Medication Instructions Recorded Confirmed Type olmesartan [Benicar] 20 mg PO DAILY 10/16/19 10/16/19 History simvastatin 20 mg PO DAILY 10/16/19 10/16/19 History oxycodone 5 mg PO Q4H PRN #60 tab 10/22/19 Rx acetaminophen 650 mg PO TID #20 tab 10/25/19 Rx aspirin 81 mg PO DAILY #0 tab 10/25/19 10/16/19 Rx docusate sodium [DOK] 100 mg PO BID #20 cap 10/25/19 Rx polyethylene glycol 3350 17 gm PO DAILY PRN #20 ea 10/25/19 Rx warfarin 5 mg PO SEEINSTR #0 tab 10/25/19 10/16/19 Rx warfarin [Coumadin] 7.5 mg PO Tu@1700 #20 tab 10/25/19 Rx zolpidem [Ambien] 5 mg PO BEDTIME PRN #10 tab 10/25/19 Rx Allergies Allergy/AdvReac Type Severity Reaction Status Date / Time codeine AdvReac Mild Nausea, Verified 10/19/19 13:54 vomiting Exam Vital Signs (past 8 hours): Oxygen Delivery Method Room Air Oxygen Flow Rate 0 Const General: cooperative Nutritional Appearance: obese Orientation: oriented x3 Resp Effort & Inspection: normal respiratory effort Auscultation: clear to auscultation bilaterally Cardio Rate: regular rate Rhythm: regular rhythm Extrem Other: Left knee range of motion is significantly limited. There is moderate mediolateral laxity. Quad strength is intact. There is a large effusion. Objective Labs Result Diagrams: 10/23/19 05:40 Assessment & Plan Assessment & Plan narrative: The patient presents today for left total knee arthroplasty after failing conservative treatment. The nature of the procedure including the risks, benefits, alternatives, postop course expected outcome were discussed and all questions answered. Informed consent was obtained. COVID-19 COVID-19 status: Negative Result date/Date tested (Pos, Neg/Pending): 10/20/19 Time Spent With Patient Time with patient: less than 15 minutes Quality VTE Deep Vein Thrombosis/Pulmonary Embolism Present on Admission: No
== END 2019-10-25 12:09 | DRG 470 ==
LOC: OR 06:10 → AC 06:11
PROVIDERS: Admitting Provider Orthopaedic Surgery; PCP Family Medicine; Referring Provider Orthopaedic Surgery; Visit Provider Orthopaedic Surgery
PROC: 0SRD0JZ Replacement of Left Knee Joint with Synthetic Substitute, Open Approach (ICD-10-PCS; CPT 27447; principal; 2019-10-22 07:45)
DX: M17.12 Unilateral primary osteoarthritis, left knee (principal); D68.51 Activated protein C resistance; Z68.42 Body mass index [BMI] 45.0-49.9, adult; Z01.812 Encounter for preprocedural laboratory examination; G47.33 Obstructive sleep apnea (adult) (pediatric); I10 Essential (primary) hypertension; E66.01 Morbid (severe) obesity due to excess calories; E78.5 Hyperlipidemia, unspecified; G47.00 Insomnia, unspecified; E11.9 Type 2 diabetes mellitus without complications; Z86.718 Personal history of other venous thrombosis and embolism; Z79.01 Long term (current) use of anticoagulants; Z85.038 Personal history of other malignant neoplasm of large intestine; Z85.01 Personal history of malignant neoplasm of esophagus; Z85.028 Personal history of other malignant neoplasm of stomach; Z11.59 Encounter for screening for other viral diseases
CPT/HCPCS: 36415; 73560; 85014; 85018; 87635; 93971; 97110; 97116; 97161; C1776; C9290; J0690; J1100; J1170; J1650; J2250; J2405; J2704; J3010

== ENCOUNTER → 2019-10-27 11:47 | Outpatient (CLI) | payer SELFPAY ==
[2019-10-22 14:20] VITALS: BMI 46.0
--- NOTE | 2019-10-27 | DI.US.S_ITS ---
PROCEDURE: US PERIP VENOUS LOW EXTREM LT INDICATIONS: EDEMA TECHNIQUE: Real-time imaging, as well as color and pulse Doppler interrogation, were performed of the lower extremity deep veins from the inguinal ligament to the popliteal fossa. COMPARISON: [facility], , [facility] VENOUS LOW EXTREM LT, 10/23/2019, 11:18. FINDINGS: The common femoral, femoral and popliteal veins are normally compressible, and free of intraluminal thrombus. Color and pulse Doppler demonstrate normal phasic intraluminal flow. There is normal augmentation response to distal compression maneuver. Muniz cyst behind the knee. 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 Dictated by: Vinay Thomas M.D. on 10/27/2019 at 12:45 Approved by: Vinay Thomas M.D. on 10/27/2019 at 12:46
== END ==
PROVIDERS: PCP Family Medicine; Referring Provider Nurse Practitioner; Visit Provider Nurse Practitioner
DX: R60.0 Localized edema (principal); M71.22 Synovial cyst of popliteal space [Baker], left knee
CPT/HCPCS: 93971

== ENCOUNTER → 2019-10-29 14:59 | Outpatient (ROUT) | payer SELFPAY ==
[2019-10-22 14:20] VITALS: BMI 46.0
[2019-10-29 15:01] LABS: RBC Urine None Seen (0-5/HPF)
[2019-10-29 15:16] LABS: Appearance Urine UA CLOUDY; Bilirubin Urine UA NEGATIVE (NEGATIVE); Color Urine UA YELLOW; Glucose Urine UA NEGATIVE (Negative); Ketones Urine UA NEGATIVE (NEGATIVE); Leukocyte Esterase Urine UA 2+ (NEGATIVE); Nitrite Urine UA NEGATIVE (Negative); Occult Blood Urine UA TRACE-INTACT (Negative); Protein Urine UA NEGATIVE (Negative); Urobilinogen Urine UA 0.2 E.U./dL (0.2)
[2019-10-29 15:21] LABS: pH Urine UA 7.5 (4.5-8.0)
[2019-10-29 15:22] LABS: Bacteria Urine Many (>30); Squamous Epithelial Cell Urine 5-10 /HPF (0-5/HPF); Triple Phosphate Crystal Urine Few; WBC Urine 10-30/HPF (0-5/HPF)
== END ==
PROVIDERS: PCP Family Medicine; Visit Provider Nurse Practitioner
DX: N39.0 Urinary tract infection, site not specified (principal)
CPT/HCPCS: 81001

== ENCOUNTER → 2019-10-31 13:19 | Outpatient (ROUT) | payer SELFPAY ==
[2019-10-22 14:20] VITALS: BMI 46.0
[2019-10-31 13:31] LABS: INR 1.9 (0.9-1.3); Prothrombin Time 21.4 SECONDS (10.1-12.7)
== END ==
PROVIDERS: PCP Family Medicine; Visit Provider Nurse Practitioner
DX: I10 Essential (primary) hypertension (principal); Z79.01 Long term (current) use of anticoagulants
CPT/HCPCS: 85610